=== PATIENT | female | born 1990 | race Caucasian/White ===

== ENCOUNTER → 2020-05-16 | Outpatient (CLI) | payer OTHER ==
[2020-05-17 08:26] LABS: Candida species (DNA Probe) Negative (NEGATIVE); G. vaginalis (DNA Probe) Negative (NEGATIVE); T. vaginalis (DNA Probe) Negative (NEGATIVE)
[2020-05-18 04:08] LABS: CHLAMYDIA TRACHOMATIS, NAA Negative (Negative); NEISSERIA GONORRHOEAE, NAA Negative (Negative)
== END | disposition home or self-care (01) ==
LOC: LAB 09:13 → LAB SHORT 09:13
PROVIDERS: Advanced Practice Midwife
DX: Z11.3 Encounter for screening for infections with a predominantly sexual mode of transmission (principal); N76.0 Acute vaginitis
CPT/HCPCS: 87480; 87491; 87510; 87591; 87660

== ENCOUNTER 2020-10-24 02:42 | Emergency (ER) | payer OTHER ==
[~2020-10-24] VITALS: Ht 162.6 cm; Wt 54.4 kg
[2020-10-24 03:00] LABS: BASOPHILS ABSOLUTE AUTO 0.03 K/mm3 (0.00-0.23); BASOPHILS PERCENT AUTO 0 % (0-2); EOSINOPHILS ABSOLUTE AUTO 0.03 K/mm3 (0.00-0.68); EOSINOPHILS PERCENT AUTO 0 % (0-6); IMMATURE GRAN ABSOLUTE AUTO 0.06 K/mm3 (0.00-0.10); IMMATURE GRAN PERCENT AUTO 0 % (0-1); LYMPHOCYTES ABSOLUTE AUTO 2.51 K/mm3 (0.84-5.20); LYMPHOCYTES PERCENT AUTO 14 % (21-46); MONOCYTES ABSOLUTE AUTO 1.01 K/mm3 (0.16-1.47); MONOCYTES PERCENT AUTO 6 % (4-13); Mean Corpuscular HGB 32.8 pg (26.0-34.0); Mean Corpuscular HGB Conc 34.1 g/dL (31.5-36.5); Mean Corpuscular Volume 96 fL (80-100); Mean Platelet Volume 8.8 fL (9.1-12.4); NEUTROPHILS PERCENT AUTO 79 % (41-73); Platelet Count 361 K/mm3 (150-400); RDW Coefficient Variation 12.5 % (11.7-14.2); RDW Standard Deviation 44.1 fL (35.1-46.3); Red Blood Cell Count 4.58 M/mm3 (3.80-5.20); White Blood Cell Count 17.64 K/mm3 (4.00-11.30)
[2020-10-24 03:17] LABS: Alanine Aminotransfer (ALT/SGP 48 U/L (12-78); Albumin, Blood 4.1 g/dL (3.4-5.0); Albumin/Globulin Ratio 1.3 (0.8-1.8); Alk Phos 71 U/L (50-136); Anion Gap 8 mmol/L (6-16); Aspartate Aminotrans (AST/SGOT 51 U/L (12-37); Bilirubin, Total 0.4 mg/dL (0.1-1.0); Blood Urea Nitrogen 18 mg/dL (8-24); Bun/Creatinine Ratio 32.7 (12.0-20.0); CO2, Blood 26 mmol/L (21-32); Calcium, Blood 8.3 mg/dL (8.5-10.1); Chloride, Blood 107 mmol/L (98-108); Creatinine, Blood 0.55 mg/dL (0.40-1.00); Ethanol (Alcohol), Blood, Med 276 mg/dL; Globulin, Blood 3.2 g/dL (2.2-4.0); Glomerular Filtration Rate >60 (60-); Glucose, Blood 105 mg/dL (70-99); Potassium, Blood 3.5 mmol/L (3.5-5.5); Sodium, Blood 141 mmol/L (136-145); Total Protein, Blood 7.3 g/dL (6.4-8.2)
[2020-10-24 04:16] LABS: U Amphetamine Screen Not Detected; U Barbituate Screen Not Detected; U Benzodiazapine Screen Not Detected; U Buprenorphine Screen Not Detected; U Cannabinoids Screen Not Detected; U Cocaine Screen Not Detected; U Methadone Screen Not Detected; U Methamphetamine Screen Not Detected; U Opiates Screen Not Detected; U Oxycodone Screen Not Detected; U Phencyclidine Screen Not Detected; U Propoxyphene Screen Not Detected
[2020-10-24 05:09] LABS: Troponin I <0.015 ng/mL (0.000-0.040)
[2020-10-24] MEDS ORDERED: CEPH500 PO (06:44)
[2020-10-24] MEDS ORDERED: Norco 5-325 Ta1 EACH PO (06:46)
[2020-10-24] MEDS ORDERED: Colace250 MG PO (06:46)
== END 2020-10-24 06:59 | disposition home or self-care (01) ==
LOC: ER 02:42
PROVIDERS: Emergency Medicine
DX: S06.0X0A Concussion without loss of consciousness, initial encounter (principal); S01.81XA Laceration without foreign body of other part of head, initial encounter; F10.129 Alcohol abuse with intoxication, unspecified; V48.5XXA Car driver injured in noncollision transport accident in traffic accident, initial encounter; Y92.828 Other wilderness area as the place of occurrence of the external cause
CPT/HCPCS: 12016; 70450; 70486; 71045; 72125; 72128; 72170; 80053; 84484; 85025; 86850; 86900; 86901; 90471; 93005; 93010; 96365-59; 96375-59; 96376-59; 99285-25; G0480; J0690; J2270; L0160

== ENCOUNTER 2021-04-23 18:58 | Inpatient (IN) | payer OTHER ==
[~2021-04-23] VITALS: Ht 162.6 cm; Wt 53.6 kg
[~2021-04-23 18:58] MED LIST: CEPH500 PO; Colace250 MG PO; Norco 5-325 Ta1 EACH PO
[2021-04-23 20:21] LABS: Hematocrit 37.9 % (33.0-51.0); Hemoglobin 13.1 g/dL (11.5-16.0); Mean Corpuscular HGB 33.5 pg (26.0-34.0); Mean Corpuscular HGB Conc 34.6 g/dL (31.5-36.5); Mean Corpuscular Volume 97 fL (80-100); Mean Platelet Volume 9.6 fL (9.1-12.4); Platelet Count 260 K/mm3 (150-400); RDW Coefficient Variation 11.9 % (11.7-14.2); RDW Standard Deviation 42.8 fL (35.1-46.3); Red Blood Cell Count 3.91 M/mm3 (3.80-5.20); White Blood Cell Count 9.26 K/mm3 (4.00-11.30)
[2021-04-23 20:45] LABS: SARS-Cov-2 (COVID-19) PCR, MMC POSITIVE (NEGATIVE)
[2021-04-23 21:28] LABS: Alanine Aminotransfer (ALT/SGP 24 U/L (12-78); Albumin, Blood 3.8 g/dL (3.4-5.0); Albumin/Globulin Ratio 1.4 (0.8-1.8); Alk Phos 66 U/L (50-136); Anion Gap 4 mmol/L (6-16); Aspartate Aminotrans (AST/SGOT 11 U/L (12-37); Beta HCG, Quantitative, Serum 110 mIU/mL (0-3); Bilirubin, Total 1.1 mg/dL (0.1-1.0); Blood Urea Nitrogen 12 mg/dL (8-24); Bun/Creatinine Ratio 19.5 (12.0-20.0); CO2, Blood 26 mmol/L (21-32); Calcium, Blood 8.3 mg/dL (8.5-10.1); Chloride, Blood 110 mmol/L (98-108); Creatinine, Blood 0.61 mg/dL (0.40-1.00); Globulin, Blood 2.7 g/dL (2.2-4.0); Glomerular Filtration Rate >60 (60-); Glucose, Blood 80 mg/dL (70-99); Potassium, Blood 3.5 mmol/L (3.5-5.5); Sodium, Blood 140 mmol/L (136-145); Total Protein, Blood 6.5 g/dL (6.4-8.2)
--- NOTE | 2021-04-23 23:57 | NUR ---
Patient returned from PACU at 2330, vitals are stable with 3 lap sites dressing dry clean and intact. Patient has moderate vaginal bleeding. Patint is tolerating water and jello with no nausea. Patient c/o pain of 7 and nurse administered pain meds. Another set of vitals will be taken and patient will go home. Will continue to monitor.
[2021-04-24] MEDS ORDERED: Percocet 5-3251 EACH PO (00:13)
[2021-04-24] MEDS ORDERED: MOTRIN IB200 MG PO (00:13)
--- NOTE | 2021-04-24 00:45 | NUR ---
PT REQ TO D/C HOME TONIGHT. PT ALERT, DENIES DIZZINESS WHEN UP. PT VOIDED URINE W/O DIFFICULTY. INCISIONS CDI, PT HAVING SMALL-MOD AMT VAGINAL BLEEDING, KYLE PAD CHANGED X1. PT MED FOR PAIN W/1 OXYCODONE, REP PAIN MARCIE AT TIME OF DC. D/C INSTRUCTIONS AND MEDS REV W/PT, PT VERBALIZED UNDERSTANDING. SCRIPT FOR PAIN MEDS SENT HOME W/PT, PT PLANNING ON HAVING MED FILLED IN AM. PT DENIES COVID SX, EDUCATED ON NEED TO QUARANTINE/ISOLATE R/T POSITIVE COVID TEST TODAY. EDUCATED TO FOLLOW UP W/PRIMARY MD FOR QUESTIONS/CONCENRS R/T COVID. BILLING ASSOCIATE ASSISTED PT OUT TO RIDE VIA W/C.
--- NOTE | 2021-04-24 01:01 | NUR ---
PATIENT WAS DISCHARGED HOME AND LEFT VIA WHEELCHAIR. PATRIENT WERE GIVEN DISCHARGE ORDERS, PRESCRIPTION FOR PAIN MEDICATION AND TO QUARANTIN. PATIENT WAS ALERT AND ORIENTED AND STABLE AND NO SIGN OF DISTRESS
[2021-04-25] MEDS ORDERED: ACET500 PO (12:25)
[2021-04-25] MEDS ORDERED: IBUP400 PO (12:25)
[2021-04-25] MEDS ORDERED: OXYC5 PO (12:25)
== END 2021-04-24 00:50 | disposition home or self-care (01) | DRG 817 ==
LOC: SURS 18:58
PROVIDERS: Obstetrics & Gynecology; ADMIT Obstetrics & Gynecology
PROC: 0UT54ZZ Resection of Right Fallopian Tube, Percutaneous Endoscopic Approach (ICD-10-PCS; 2021-04-23)
PROC: 10T24ZZ Resection of Products of Conception, Ectopic, Percutaneous Endoscopic Approach (ICD-10-PCS; principal; 2021-04-23 21:30)
DX: O00.101 Right tubal pregnancy without intrauterine pregnancy (principal); U07.1 COVID-19; F17.210 Nicotine dependence, cigarettes, uncomplicated; F12.90 Cannabis use, unspecified, uncomplicated; Z98.891 History of uterine scar from previous surgery; Z98.890 Other specified postprocedural states
CPT/HCPCS: 36415; 80053; 84702; 84703; 85027; A9270; J1100; J1885; J2250; J2405; J2704; J3010; J7120; U0004

== ENCOUNTER 2021-04-25 09:25 | Emergency (ER) | payer OTHER ==
[~2021-04-25] VITALS: Ht 162.6 cm; Wt 53.5 kg
[~2021-04-25 09:25] MED LIST changes: +MOTRIN IB200 MG PO; +Percocet 5-3251 EACH PO
[2021-04-25 10:25] LABS: BASOPHILS ABSOLUTE AUTO 0.01 K/mm3 (0.00-0.23); BASOPHILS PERCENT AUTO 0 % (0-2); EOSINOPHILS ABSOLUTE AUTO 0.02 K/mm3 (0.00-0.68); EOSINOPHILS PERCENT AUTO 0 % (0-6); Hematocrit 36.1 % (33.0-51.0); Hemoglobin 12.2 g/dL (11.5-16.0); IMMATURE GRAN ABSOLUTE AUTO 0.04 K/mm3 (0.00-0.10); IMMATURE GRAN PERCENT AUTO 0 % (0-1); LYMPHOCYTES ABSOLUTE AUTO 1.02 K/mm3 (0.84-5.20); LYMPHOCYTES PERCENT AUTO 11 % (21-46); MONOCYTES ABSOLUTE AUTO 0.83 K/mm3 (0.16-1.47); MONOCYTES PERCENT AUTO 9 % (4-13); Mean Corpuscular HGB 33.3 pg (26.0-34.0); Mean Corpuscular HGB Conc 33.8 g/dL (31.5-36.5); Mean Corpuscular Volume 99 fL (80-100); Mean Platelet Volume 9.4 fL (9.1-12.4); NEUTROPHILS ABSOLUTE AUTO 7.35 K/mm3 (1.96-9.15); NEUTROPHILS PERCENT AUTO 79 % (41-73); Platelet Count 225 K/mm3 (150-400); RDW Coefficient Variation 11.9 % (11.7-14.2); RDW Standard Deviation 43.3 fL (35.1-46.3); Red Blood Cell Count 3.66 M/mm3 (3.80-5.20); White Blood Cell Count 9.27 K/mm3 (4.00-11.30)
[2021-04-25 10:59] LABS: Alanine Aminotransfer (ALT/SGP 40 U/L (12-78); Albumin, Blood 3.4 g/dL (3.4-5.0); Albumin/Globulin Ratio 1.3 (0.8-1.8); Alk Phos 54 U/L (50-136); Anion Gap 4 mmol/L (6-16); Aspartate Aminotrans (AST/SGOT 26 U/L (12-37); Bilirubin, Direct 0.3 mg/dL (0.0-0.3); Bilirubin, Indirect 0.9 mg/dL (0.1-0.7); Bilirubin, Total 1.2 mg/dL (0.1-1.0); Blood Urea Nitrogen 9 mg/dL (8-24); Bun/Creatinine Ratio 13.7 (12.0-20.0); CO2, Blood 26 mmol/L (21-32); Calcium, Blood 8.4 mg/dL (8.5-10.1); Chloride, Blood 111 mmol/L (98-108); Creatinine, Blood 0.66 mg/dL (0.40-1.00); Globulin, Blood 2.6 g/dL (2.2-4.0); Glomerular Filtration Rate >60 (60-); Glucose, Blood 99 mg/dL (70-99); Potassium, Blood 3.5 mmol/L (3.5-5.5); Sodium, Blood 141 mmol/L (136-145)
[2021-04-25] MEDS ORDERED: IBUP400 PO (12:25)
[2021-04-25] MEDS ORDERED: OXYC5 PO (12:25)
[2021-04-25] MEDS ORDERED: ACET500 PO (12:25)
== END 2021-04-25 12:41 | disposition home or self-care (01) ==
LOC: ER 09:25
PROVIDERS: Emergency Medicine; Student in an Organized Health Care Education/Training Program
DX: G89.18 Other acute postprocedural pain (principal); R10.11 Right upper quadrant pain; R07.81 Pleurodynia; F17.210 Nicotine dependence, cigarettes, uncomplicated; Z90.79 Acquired absence of other genital organ(s)
CPT/HCPCS: 36415; 71260; 74177; 80053; 82248; 83690; 85025; 93005; 93010; 96361; 96374-59; 96376; 99285-25; J2270; J7030; Q9967

== ENCOUNTER 2021-12-22 22:41 | Emergency (ER) | payer OTHER ==
[~2021-12-22] VITALS: Ht 162.6 cm; Wt 60.8 kg
[~2021-12-22 22:41] MED LIST changes: +ACET500 PO; +IBUP400 PO; +OXYC5 PO
[2021-12-22] MEDS ORDERED: PRENATAL TABLE1 EAC2 (23:19)
== END 2021-12-22 23:25 | disposition home or self-care (01) ==
LOC: ER 22:41
DX: O12.02 Gestational edema, second trimester (principal); O99.332 Smoking (tobacco) complicating pregnancy, second trimester; F17.210 Nicotine dependence, cigarettes, uncomplicated; Z3A.22 22 weeks gestation of pregnancy
CPT/HCPCS: 99283

== ENCOUNTER 2022-04-15 08:56 | Inpatient (IN) | payer OTHER ==
[~2022-04-15] VITALS: Ht 162.6 cm; Wt 70.5 kg
[~2022-04-15 08:56] MED LIST changes: +PRENATAL TABLE1 EAC2
[2022-04-15 09:36] LABS: BASOPHILS ABSOLUTE AUTO 0.03 K/mm3 (0.00-0.23); BASOPHILS PERCENT AUTO 0 % (0-2); EOSINOPHILS ABSOLUTE AUTO 0.06 K/mm3 (0.00-0.68); EOSINOPHILS PERCENT AUTO 1 % (0-6); Hematocrit 33.2 % (33.0-51.0); Hemoglobin 11.6 g/dL (11.5-16.0); IMMATURE GRAN ABSOLUTE AUTO 0.15 K/mm3 (0.00-0.10); IMMATURE GRAN PERCENT AUTO 2 % (0-1); LYMPHOCYTES ABSOLUTE AUTO 1.46 K/mm3 (0.84-5.20); LYMPHOCYTES PERCENT AUTO 14 % (21-46); MONOCYTES ABSOLUTE AUTO 0.85 K/mm3 (0.16-1.47); MONOCYTES PERCENT AUTO 8 % (4-13); Mean Corpuscular HGB 34.7 pg (26.0-34.0); Mean Corpuscular HGB Conc 34.9 g/dL (31.5-36.5); Mean Corpuscular Volume 99 fL (80-100); Mean Platelet Volume 9.3 fL (9.1-12.4); NEUTROPHILS ABSOLUTE AUTO 7.66 K/mm3 (1.96-9.15); NEUTROPHILS PERCENT AUTO 75 % (41-73); Platelet Count 275 K/mm3 (150-400); RDW Coefficient Variation 12.7 % (11.7-14.2); RDW Standard Deviation 46.5 fL (35.1-46.3); Red Blood Cell Count 3.34 M/mm3 (3.80-5.20); White Blood Cell Count 10.21 K/mm3 (4.00-11.30)
--- NOTE | 2022-04-15 11:52 | NUR ---
04/15/22 1152 BryArielle S VIABLE FEMALE BORN AT 1137 WEIGHT 7-4 [id number] 9/9. CORD BLOOD GIVEN TO ADIEL LOPEZ AND NO CORD GASSES PER SOFI GILBERT SENT FOR PATHOLOGY
[2022-04-16 06:01] LABS: BASOPHILS ABSOLUTE AUTO 0.04 K/mm3 (0.00-0.23); BASOPHILS PERCENT AUTO 0 % (0-2); EOSINOPHILS PERCENT AUTO 2 % (0-6); Hematocrit 35.1 % (33.0-51.0); Hemoglobin 11.9 g/dL (11.5-16.0); IMMATURE GRAN ABSOLUTE AUTO 0.12 K/mm3 (0.00-0.10); IMMATURE GRAN PERCENT AUTO 1 % (0-1); LYMPHOCYTES ABSOLUTE AUTO 2.45 K/mm3 (0.84-5.20); LYMPHOCYTES PERCENT AUTO 18 % (21-46); MONOCYTES ABSOLUTE AUTO 0.74 K/mm3 (0.16-1.47); MONOCYTES PERCENT AUTO 6 % (4-13); Mean Corpuscular HGB 34.4 pg (26.0-34.0); Mean Corpuscular HGB Conc 33.9 g/dL (31.5-36.5); Mean Corpuscular Volume 101 fL (80-100); Mean Platelet Volume 9.2 fL (9.1-12.4); NEUTROPHILS ABSOLUTE AUTO 9.93 K/mm3 (1.96-9.15); NEUTROPHILS PERCENT AUTO 74 % (41-73); Platelet Count 262 K/mm3 (150-400); RDW Coefficient Variation 12.8 % (11.7-14.2); RDW Standard Deviation 47.6 fL (35.1-46.3); Red Blood Cell Count 3.46 M/mm3 (3.80-5.20); White Blood Cell Count 13.48 K/mm3 (4.00-11.30)
--- NOTE | 2022-04-16 17:27 | NUR ---
PT REPORTS THE ONE PER[facility] IS WORKING FOR HER, SHE IS AWARE SHE CAN HAVE ANOTHER ONE AT 1800 IF SHE WANTS,
--- NOTE | 2022-04-17 09:53 | NUR ---
DISCHARGE INSTRUCTIONS REVIEWED AND SIGNED. QUESTIONS ANSWERED. BANDS MATCHED. PT TO DISCHARGE TO HOME WITH AND SO
--- NOTE | 2022-04-21 09:07 | NUR ---
LATE ENTRY UPDATED LABOR&DELIVERY SUMMARY PER EMR
== END 2022-04-17 09:56 | disposition home or self-care (01) | DRG 788 ==
LOC: BC 08:56
PROVIDERS: ADMIT Obstetrics & Gynecology
PROC: 10D00Z1 Extraction of Products of Conception, Low, Open Approach (ICD-10-PCS; principal; 2022-04-15 11:00)
DX: O34.211 Maternal care for low transverse scar from previous cesarean delivery (principal); Z3A.39 39 weeks gestation of pregnancy; Z37.0 Single live birth; O40.3XX0 Polyhydramnios, third trimester, not applicable or unspecified; O24.92 Unspecified diabetes mellitus in childbirth
CPT/HCPCS: 36415; 85025; 86850; 86900; 86901; 88307; A9270; C1765; J0690; J1885; J2370; J2405; J2765; J3010; J7120

== ENCOUNTER → 2022-07-30 | Outpatient (CLI) | payer OTHER | END | disposition home or self-care (01) | LOC: LAB SHORT 10:25 | DX: L72.9 Follicular cyst of the skin and subcutaneous tissue, unspecified (principal); L08.9 Local infection of the skin and subcutaneous tissue, unspecified | CPT/HCPCS: 87070; 87075; 87205 ==

== ENCOUNTER → 2023-09-27 | Outpatient (CLI) | payer OTHER | LOC: LAB SHORT 07:51 → LAB 07:51 | DX: B35.1 Tinea unguium (principal); L60.2 Onychogryphosis | CPT/HCPCS: 88304; 88312 ==